=== PATIENT | male | born 1930 | race Hispanic/Latino ===

== ENCOUNTER 2017-09-26 06:21 | Day surgery (SDC) | payer MEDICARE ==
[2017-05-15 11:13] VITALS: BMI 34.4
[2017-09-26] MEDS ORDERED: Bacitracin 500 Units/gm Oint Foilpak UD ONE (07:14)
[2017-09-26] MEDS ORDERED: Lidocaine 1% w Epi 1:100,000 Inj ONE (07:14)
[2017-09-26] MEDS ORDERED: Oxymetazoline 0.05% Nasal Spray (30 ml) NS ONE (07:59)
[2017-09-26] MEDS ORDERED: Midazolam 2 MG/2 ML VIAL ONE (08:01)
[2017-09-26] MEDS ORDERED: Rocuronium 10 mg/ml (5 ml) ONE (08:03)
[2017-09-26] MEDS ORDERED: Etomidate 20 mg/10ml Inj IV ONE (08:03)
[2017-09-26] MEDS ORDERED: HYDROmorphone 0.5 mg/0.5 ml ISec IVP PRN (09:01)
[2017-09-26] MEDS ORDERED: Neostigmine Methylsulfate 3mg/3ml Syringe IV ONE (09:08)
[2017-09-26] MEDS ORDERED: ePHEDrine 50 mg/ml Inj ONE (09:08)
[2017-09-26] MEDS ORDERED: Glycopyrrolate 0.2 mg/ml (2ml vial) ONE (09:11)
[2017-09-26] MEDS ORDERED: Lactated Ringer's 1,000 ML IV SCH (09:15)
[2017-09-26] MEDS ORDERED: Propofol 10 mg/ml Inj (20 ML) ONE (10:09)
[2017-09-26] MEDS ORDERED: Oxycodone/Acetaminophen 5/325 mg Tab PO PRN (10:28)
--- NOTE | 2017-09-26 10:48 | PCM.SURG1 ---
Surgeon's Initial Post Op Note - Surgeon's Notes Surgeon: Dr. Masood Rashid Building Services Technician: Morenita Barger, PGY2 Type of Anesthesia: General Endo Anesthesia Administered By: Dr. 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
[2017-09-26] MEDS: ceFAZolin 1 gm in NS 1 GM/100 ML BAG IVPB SCH (18:51)
--- NOTE | 2017-09-26 21:23 | OP ---
PROCEDURE DATE: 09/26/2017 PREOPERATIVE DIAGNOSES: Squamous cell carcinoma involving the lower lip and an additional lesion involving the left lower lip as well. POSTOPERATIVE DIAGNOSES: Squamous cell carcinoma involving the right lower lip approximately 2 cm in diameter and just an actinic keratosis involving the left lower lip. SURGEON: Masood Rashdi DO. PROFESSOR OF LEGAL STUDIES: General Surgery resident. TYPE OF ANESTHESIA: General endotracheal. ESTIMATED BLOOD LOSS: Minimal. GROSS FINDINGS: A 2 cm exophytic lesion involving the right lower lip confined to the red portion of the lip with extension into the vermilion border. Additional smaller 3 to 4 mm ulcerative-type lesion was noted on the left lower lip as well. DESCRIPTION OF PROCEDURE: The patient was taken to the operating room. The patient was prepped and draped in routine fashion, underwent anesthesia, endotracheal tube intubation. The wounds were prepped and draped in routine fashion and injected with 1% Xylocaine with epinephrine for hemostatic purposes. Approximately 30% of the right lower lip was involved with the cancer, which was previously diagnosed on biopsy and 0.5 cm margins were taken on both sides bilaterally in a wedge type of resection. This wedge resection was carried out with #15 blade through the mucosa and epidermal layers and then carried down through the subcutaneous, orbicularis chaya muscle and the inner lip mucosa. Bleeding was controlled with the use of electrocautery. The lesion was marked and sent down with frozen sections for determination of margins, which proved to be negative for tumor involvement. Additionally, the left lower lip lesion was excised with #15 blade and was reapproximated with a 5-0 chromic suture in a simple interrupted fashion. This frozen section was benign. We then closed the large wedge resection portion of the right squamous cell carcinoma defect, which was created by approximating the orbicularis chaya muscle first using 4-0 Vicryl suture in a horizontal mattress fashion. Submucosal and subcuticular layers were then closed using 5-0 Vicryl suture in a simple interrupted inverted knot fashion. The oral mucosa portion of the lip wound was closed using a combination of 4-0 chromic and 4-0 Vicryl sutures in a simple interrupted fashion. Care was taken to approximate the vermilion border and subcuticular closure of the skin portion of the lip extending into the chin was carried out with 5-0 Vicryl suture in a simple interrupted inverted knot fashion. A 5-0 Prolene suture in a running locking fashion was then used to approximate the epidermal portion of the defect in a running locking fashion. Steri-Strips were applied to the wound followed by bacitracin ointment. The patient tolerated the procedure well and was taken from the operating room to the recovery room in stable condition. Masood Rashid DO
--- NOTE | 2017-09-26 23:12 | CP.PCM.PN ---
Subjective - Date & Time of Evaluation Date of Evaluation: 09/26/17 Time of Evaluation: 23:10 - Subjective Subjective: S: Seen at bedside. Requested a sleeping pill. Has no other complaints now. Pertinent medical record was reviewed. O: Last Vital Signs 3 Temp 99.1 F 09/26/17 16:00 Pulse 101 H 09/26/17 16:00 Resp 19 09/26/17 16:00 BP 141/90 09/26/17 16:00 Pulse Ox 94 L 09/26/17 16:00 Awake,alert. Not in distress. LUNGS: Normal breathing pattern. NEURO:Speech normal. A: Adjustment insomnia. P:Ambien 10 mg PO x 1. Objective - Vital Signs/Intake and Output Vital Signs (last 24 hours): Temp Pulse Resp BP Pulse Ox 99.1 F 101 H 19 141/90 94 L 09/26/17 16:00 09/26/17 16:00 09/26/17 16:00 09/26/17 16:00 09/26/17 16:00 Intake and Output: 09/26/17 09/27/17 18:59 06:59 Intake Total 360 Balance 360 - Medications Medications: Current Medications Aspirin (Aspirin Chewable) 81 mg PO DAILY [facility] Atorvastatin Calcium (Lipitor) 40 mg PO DIN [facility] Last Admin: 09/26/17 18:51 Dose: 40 mg Enoxaparin Sodium (Lovenox) 40 mg SC DAILY [facility] PRN Reason: Protocol Hydrochlorothiazide (Hydrodiuril) 25 mg PO DAILY [facility] Hydromorphone HCl (Dilaudid) 0.5 mg IVP Q15M PRN PRN Reason: Pain, moderate (4-7) Stop: 09/26/17 23:59 Cefazolin Sodium (Ancef 1gm In Ns) 1 gm in 100 mls @ 100 mls/hr IVPB BID [facility] PRN Reason: Protocol Last Admin: 09/26/17 18:51 Dose: 100 mls/hr Losartan Potassium (Cozaar) 50 mg PO DAILY [facility] Metoprolol Succinate (Toprol Xl) 100 mg PO BRK [facility] Ondansetron HCl (Zofran Inj) 4 mg IVP ONCE PRN PRN Reason: Nausea/Vomiting Oxycodone/Acetaminophen (Percocet 5/325 Mg Tab) 1 tab PO Q4 PRN PRN Reason: Pain, moderate (4-7) Stop: 09/29/17 10:29 Potassium Chloride (K-Dur 20 Meq Er Tab) 20 meq PO BRK [facility]
[2017-09-27 02:39] VITALS: RESP 18; O2SAT 95
[2017-09-27 03:06] VITALS: PULSE 96; TEMP 98.1
--- NOTE | 2017-09-27 07:47 | CP.PCM.DIS ---
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 Patient underwent a resection of both lesions with primary closure on 09/26/17 and was admitted under extended recovery to ensure pain was well managed and patient able to eat soft foods after surgery. Patient recovered well, remained hemodynamically stable, was able to eat, ambulate, and have normal bladder and bowel function. Tolerated pain on PO pain medication. Patient was discharged to home with instructions to follow up with Dr. Rashid in his office. For full hospital course please refer to chart Discharge Exam - Head Exam Head Exam: ATRAUMATIC, NORMOCEPHALIC - Eye Exam Eye Exam: Normal appearance. absent: Conjunctival injection, Scleral icterus - ENT Exam ENT Exam: Mucous Membranes Moist Additional comments: inisions well approximated, right lower lip lesion covered in steristrips c/d/ i. No swelling, drainage, or active bleeding. - Respiratory Exam Respiratory Exam: NORMAL BREATHING PATTERN, UNREMARKABLE. absent: Accessory Muscle Use, Respiratory Distress - Cardiovascular Exam Cardiovascular Exam: RRR - GI/Abdominal Exam GI & Abdominal Exam: absent: Distended - Extremities Exam Extremities exam: normal inspection, pedal pulses present - Neurological Exam Neurological exam: Alert, Oriented x3 - Psychiatric Exam Psychiatric exam: Normal Affect, Normal Mood - Skin Skin Exam: Dry, Intact, Normal Color, Warm Discharge Plan - Follow Up Plan Condition: GOOD Disposition: HOME/ ROUTINE Instructions: Surgical Wound (DC) Additional Instructions: Follow up with Dr. Rashid in his office in 1 week. Call his office to set up an appointment Follow up with your primary care doctor within 1 week Only eat soft food at home to prevent damage to your wound Do not pick at wound. Tape will fall off on it's own. Apply bacitracin on top of the tape daily Do not drink with a straw Call Dr. Rashid's office or come to the ER for any fevers >100.4 that does not improve with tylenol, heavy bleeding or foul smelling drainage from the incision , or any other concerning symptoms. Referrals: Yevgeniy Thorne MD [Primary Care Provider] - Masood Rashid DO [[facility]] -
[2017-09-27] MEDS ORDERED: Metoprolol Succinate 25 mg XL Tab PO SCH (08:00)
[2017-09-27] MEDS ORDERED: Potassium Chloride 20 mEq ER Tab PO SCH (08:00)
[2017-09-27] MEDS: Enoxaparin 40 mg Syringe SC SCH ×2 (09:04→09:09)
[2017-09-27] MEDS: ceFAZolin 1 gm in NS 1 GM/100 ML BAG IVPB SCH (09:05)
[2017-09-27 09:06] VITALS: BP 127/82
[2017-09-27] MEDS ORDERED: Bacitracin 500 Units/gm Oint Foilpak UD TOP SCH (10:00)
== END 2017-09-27 09:39 | disposition home or self-care (01) ==
LOC: SDS 06:21 → 3RNO 11:47 → SDS 09-27 09:39
PROVIDERS: ATTEND Otolaryngology
DX: C00.1 Malignant neoplasm of external lower lip (principal); L57.0 Actinic keratosis; I10 Essential (primary) hypertension; F51.02 Adjustment insomnia
CPT/HCPCS: 11642; 88305; 88331; J0690; J1100; J1170; J2001; J2250; J2405; J2704; J2710; J3010; J7120 ×2